=== PATIENT | male | born 1995 | race Caucasian/White ===

== ENCOUNTER 2017-03-01 07:49 | Outpatient (CLI) | payer OTHER | END 2017-03-01 07:50 | LOC: LAB 07:49 | PROVIDERS: ATTEND Family Medicine | DX: J02.9 Acute pharyngitis, unspecified (principal) | CPT/HCPCS: 87070; 87880 ==

== ENCOUNTER 2017-03-04 21:38 | Emergency (ER) | payer OTHER ==
--- NOTE | 2017-03-04 22:19 | ED Physician Documentation ---
Upper Extremity Injury - HISTORIAN Historian: patient - HPI Stated Complaint: pain in L thumb Chief Complaint: Upper Extremity Injury Onset: today (20:15) Where: other ([facility]) Severity: moderate Duration: worse, persistent since (injury) Context: other Associated Symptoms: tingling Modifying Factors: pain on movement Further Comments: yes (Patient playing volleyball and had left thumb hyperextended, heard pop.) - ROS CONST: no problems - PAST HX Past History: Rt handed, other (parkinson, blastoma-partial removed, radiation, hyponatremia, extrapontine myleolysis with related parkinsonism) Immunizations: referred to PCP Allergies/Adverse Reactions: Allergies Allergy/AdvReac Type Severity Reaction Status Date / Time No Known Allergies Allergy Verified 03/04/17 22:32 Home Medications: Ambulatory Orders Medication Instructions Recorded Amoxicillin [Trimox] 875 mg PO BID 03/04/17 Clonidine HCl [Catapres] 0.1 mg PO HS 03/04/17 Hydroxyzine Pamoate [Vistaril] 25 mg PO PRN PRN 03/04/17 - SOCIAL HX Smoking History: less than 1 pack/day (10) Alcohol Use: none Drug Use: marijuana - FAMILY HX Family History: other (mother hypothyroidism, CAD) - VITAL SIGNS Vital Signs: Vital Signs Temp Pulse Resp BP Pulse Ox 98.8 F 99 H 20 108/77 99 03/04/17 21:54 03/04/17 21:54 03/04/17 21:54 03/04/17 21:54 03/04/17 21:54 - REVIEWED ASSESSMENTS Nursing Assessment Reviewed: Yes Vitals Reviewed: Yes ED Results Lab/Radiology - Radiology Radiology Impressions: Left hand, 3 views History: Injury Findings: No fracture, dislocation or abnormal bone destruction is identified. There is an accessory ossicle of the ulnar styloid. This is a normal anatomic variant. Impression: Normal. - Orders Orders: ED Orders Category Date Time Status HAND XRAY [HAND 3 VIEWS OR MORE] [RAD] Stat Exams 03/04/17 Completed Upper Extremity Injury Physic - Physical Exam General Appearance: alert, mild distress Hand: bone tenderness, limited ROM, soft tissue tenderness (thenar eminence), stiffness, swelling. No: deformity Wrist: normal inspection, non-tender, no evidence of injury, normal ROM Elbow/Forearm: normal inspection, non-tender, no evidence of injury, normal ROM Neuro/Vascular/Tendon: no vascular compromise, motor nml, sensation nml, abnml color Skin: warm,dry Resp/CVS: chest non-tender, breath sounds nml, heart sounds nml, no resp. distress, lungs clear, reg. rate & rhythm Abdomen: non-tender Discharge Clincal Impression: Sprain, finger Qualifiers: Encounter type: initial encounter Finger: thumb Laterality: left Referrals: Seda Whipple MD [Primary Care Provider] - 2 Days Additional Instructions: Wear splint for the next 5-7 days. Keep hand elevated with a cool compress for the next 24 hours. Take some Tylenol or Aleve/Ibuprofen as needed for pain. Home Medications: Ambulatory Orders Amoxicillin [Trimox] 875 mg PO BID 03/04/17 Clonidine HCl [Catapres] 0.1 mg PO HS 03/04/17 Hydroxyzine Pamoate [Vistaril] 25 mg PO PRN PRN 03/04/17 Condition: Stable Disposition: 01 HOME, SELF-CARE Decision to Admit: NO Date of Decison to Admit: 03/04/17 Decision Time: 23:13
--- NOTE | 2017-03-04 22:48 | Diagnostic Imaging Report ---
BRITTANY VALENTINO [facility] [address] [facility] [address] [address] Report Submission Date: Mar 04, 2017 10:48:09 PM CDT Patient Study Name: SHANKAR ESTEVEZ Date: Mar 04, 2017 10:21:59 PM CDT Modality Type: CR Gender: M Description: UPPER EXTREMITY : 89 Institution: [facility] Physician: BRITTANY VALENTINO Left hand, 3 views History: Injury Findings: No fracture, dislocation or abnormal bone destruction is identified. There is an accessory ossicle of the ulnar styloid. This is a normal anatomic variant. Impression: Normal. Electronically signed on Mar 04, 2017 10:48:09 PM CDT by: Edin FREEDMAN
[2017-03-04 23:25] VITALS: BP 103/53
== END 2017-03-04 23:21 | disposition home or self-care (01) ==
LOC: ED 21:38
DX: S63.602A Unspecified sprain of left thumb, initial encounter (principal); X58.XXXA Exposure to other specified factors, initial encounter; Y93.9 Activity, unspecified; Y99.9 Unspecified external cause status
CPT/HCPCS: 73130; 99283; L3924